=== PATIENT | female | born 2000 | race Two or more races ===

== ENCOUNTER 2024-04-26 10:07 | Emergency (ER) | payer SELFPAY ==
--- NOTE | ~2024-04-26 | US_ITS ---
EXAMINATION: US OBSTETRICAL ULTRASOUND CLINICAL INFORMATION: Severe left-sided abdominal pain. COMPARISON: None available. LMP: 04/15/2024. Gestational age by maternal dates is 1 week 4 days. Estimated date of delivery by maternal dates is 01/20/2025. TECHNIQUE: Ultrasound of the maternal pelvis is performed using transabdominal and transvaginal transducers. Transvaginal imaging is performed due to inadequate visualization transabdominally. M-mode Doppler is also performed. FINDINGS: There is a single intrauterine gestational sac with visible embryo/fetus, and cardiac activity. There is no significant subchorionic hemorrhage or hematoma. HR: 147 beats per minute. CRL (crown rump length): 7.30 cm (13 weeks 4 days +/- 4 days). YARI (estimated date of delivery): 10/28/2024 +/- 4 days. MATERNAL ADNEXA: The right maternal ovary measures 2.8 x 1.2 x 1.4 cm. The left maternal ovary measures 6.8 x 4.3 x 4.9 cm. 3 cysts are demonstrated measuring 3.8 x 3.2 x 4.5 cm and 1.9 x 2.0 x 2.8 cm and 2.0 x 2.6 x 2.5 cm. No maternal pelvic ascites. US/US pelvic ovarian doppler IMPRESSION: 1. Single intrauterine gestation with ultrasound gestational age of 13 weeks 4 days +/- 4 days. 2. Estimated date of delivery is 10/28/2024 +/- 4 days.
--- NOTE | ~2024-04-26 | US_ITS ---
EXAMINATION: US OBSTETRICAL ULTRASOUND CLINICAL INFORMATION: Severe left-sided abdominal pain. COMPARISON: None available. LMP: 04/15/2024. Gestational age by maternal dates is 1 week 4 days. Estimated date of delivery by maternal dates is 01/20/2025. TECHNIQUE: Ultrasound of the maternal pelvis is performed using transabdominal and transvaginal transducers. Transvaginal imaging is performed due to inadequate visualization transabdominally. M-mode Doppler is also performed. FINDINGS: There is a single intrauterine gestational sac with visible embryo/fetus, and cardiac activity. There is no significant subchorionic hemorrhage or hematoma. HR: 147 beats per minute. CRL (crown rump length): 7.30 cm (13 weeks 4 days +/- 4 days). YARI (estimated date of delivery): 10/28/2024 +/- 4 days. MATERNAL ADNEXA: The right maternal ovary measures 2.8 x 1.2 x 1.4 cm. The left maternal ovary measures 6.8 x 4.3 x 4.9 cm. 3 cysts are demonstrated measuring 3.8 x 3.2 x 4.5 cm and 1.9 x 2.0 x 2.8 cm and 2.0 x 2.6 x 2.5 cm. No maternal pelvic ascites. US/US OB <= 14 weeks fetus IMPRESSION: 1. Single intrauterine gestation with ultrasound gestational age of 13 weeks 4 days +/- 4 days. 2. Estimated date of delivery is 10/28/2024 +/- 4 days.
[2024-04-26 10:12] VITALS: BP 94/40; PULSE 89; RESP 19; TEMP 36.6; O2SAT 99; BMI 29.8
--- NOTE | 2024-04-26 10:55 | ED.ABDPAIN ---
HPI - Abdominal Pain General Chief Complaint: Abdominal Pain Stated Complaint: stomach pain Time Seen by Provider: 04/26/24 10:25 Source: patient, family and production support engineer Mode of arrival: ambulatory Limitations: other (very poor historian) History of Present Illness ED Provider: JASMIN MEDEROS narrative: 23 yo female with hx of cystectomy in past on L side unsure if she has her ovary reports she ws in [facility] until 13 days ago now here. She denies any other PMH notes at 4am awoke with severe L sided lower abdominal pain but denies n/v/d dysuria constipation. She denies any chance of states is it no possible at this time. States she has not had this before. Denies any other symptoms. She also c/o diffuse scaly itchy rash that she has had for months since she was told she was allergic to the water in [facility]. I asked her if she had cutaneous leshmaniasis but she states she wasn't told anything. She denies any chance of . MD elicited complaint: abdominal pain Pertinent past history: other (cystectomy) Onset (ago): hour(s) (4am today) Pain Consistency: constant Location: LLQ Severity: severe Quality: stabbing Radiation: none Migration to: no migration Exacerbating factors: movement Relieving factors: nothing Context: foreign travel Associated symptoms: denies other symptoms Related Data Allergies Allergy/AdvReac Type Severity Reaction Status Date / Time No Known Allergies Allergy Verified 04/26/24 10:14 Review of Systems Review of Systems Constitutional : No Weight loss, No Fever, No Chills ENT/Mouth : No sore throat, No Rhinorrhea Eyes: No Swelling, No Redness Cardiovascular : No Chest Pain, No SOB, No Edema Respiratory : No Cough, No Sputum, No Wheezing Gastrointestinal : no Nausea, noVomiting, no Diarrhea, positive abdominal Pain, No Hematochezia, No Melena Genitourinary : No Dysuria, No Urinary Frequency, No Hematuria, No Urgency Musculoskeletal : No joint pain, No Myalgias, No Joint Swelling Skin : No Skin Lesions, pos rash Neuro : No Weakness, No Numbness, No Dizziness, No Headache Psych : No Anxiety/Panic, No Depression All other systems reviewed and are negative. [facility] Past Medical History Attestation statement: The following information was validated with the patient. Source: old records reviewed Medical History (Updated 04/26/24 @ 14:25 by Lise Rutledge DO) Ovarian cyst Surgical History (Updated 04/26/24 @ 11:12 by Lise Rutledge DO) H/O ovarian cystectomy Social History Social History (Updated 04/26/24 @ 11:12 by Lise Rutledge DO) Patient Tobacco Use Status: Never used Tobacco Smoked in Last 30 Days: No Use of substances other than those prescribed or required for medical reasons: No Advance Directives: No Advance Directives Information Provided: Yes Physical Exam ED Vital Signs: Vital Signs - 24 hr 04/26/24 10:12 04/26/24 11:10 04/26/24 12:41 Temperature 98 F 98.2 F Pulse Rate 89 84 76 Respiratory Rate 19 18 18 Blood Pressure 94/40 L 96/39 L 91/38 L Pulse Oximetry 99 100 99 Oxygen Delivery Method Room Air Room Air Room Air 04/26/24 13:35 Temperature Pulse Rate 73 Respiratory Rate 16 Blood Pressure 98/52 L Pulse Oximetry 100 Oxygen Delivery Method Room Air BMI result Body Mass Index 29.8 Appearance: Alert. Oriented X3. in pain mild acute distress. Eyes: Pupils equal, round and reactive to light. ENT: Pharynx mildly dry MM Neck: Normal inspection. Neck supple. CVS: Normal heart rate and rhythm. Pulses normal. Respiratory: No respiratory distress. Breath sounds normal. Abdomen: Soft and mild ttp in LLQ no rebound. Skin: Skin warm and dry. pale skin color. Normal skin turgor. has areas of scaled rash and areas of old healed picked areas no signs of cellulitis see pictures below Extremities: No lower extremity edema. No calf ttp Neuro: Oriented X 3. No motor deficit. No sensory deficit. Course Course Course Narrative: patient notes she does not want to keep this she is [place] refugee and has no stable housing Reevaluation(s) Reevaluation #1: eating and drinking feeling much better, UA no UTI, no ectopic or cyst on exam, BP is going up she is feeling better Medical Decision Making Medical Decision Making MDM Narrative: 23 yo female with hx of cystectomy in past on L side here with c/o severe L sided pain at this time labs, UA, hcg, IV fentanyl/toradol for pain. US to rule out cyst/torsion. Patient is adamant she is not at this time we have asked multiple times. CT scan if negative. I also am worried about cutaneous leshmaniasis that is going on for months will ask ID could probably get fluconazole vs pamomycin at this point but she does not have PCP just came here 13 days ago Differential Diagnosis Differential Diagnoses: The differential diagnosis associated with the presentation includes ovarian cyst, torsion, constipation, renal colic Admission/Observation Consideration of admission/observation: Escalation of care including admission/observation considered Consult Healthcare Provider Management of the patient was discussed with: Javascript Front End Developer Lab Data [facility] Lab Attestation statement: I reviewed the patient's lab results. 04/26/24 11:01 04/26/24 11:01 Labs: Lab Results 04/26/24 04/26/24 Range/Units 11:01 12:53 WBC 8.0 (4.8-10.8) X10*3/uL RBC 4.57 (4.20-5.50) X10*6/uL Hgb 13.5 (12.0-16.0) g/dl Hct 39.6 (37.0-47.0) % MCV 86.7 (80.0-98.0) fL MCH 29.5 (27.0-33.0) pg MCHC 34.1 (31.0-35.0) g/dl RDW 12.8 (11.0-16.0) % Plt Count 292 (160-400) X10*3/uL MPV 9.3 L (9.4-12.3) fL Immature Gran % (Auto) 0.4 (0.0-0.4) % Neut % (Auto) 72.4 (45-73) % Lymph % (Auto) 19.3 L (20-40) % [place] % (Auto) 6.5 (2-11) % Eos % (Auto) 1.0 (0-4) % Baso % (Auto) 0.4 (0-2) % Lymph # (Auto) 1.6 (1.2-4.9) X10*3/uL [place] # (Auto) 0.5 (0.1-1.2) X10*3/uL Eos # (Auto) 0.1 (0.0-0.4) X10*3/uL Baso # (Auto) 0.0 (0.0-0.2) X10*3/uL Abs Immat Gran (auto) 0.03 (0.00-0.03) X10*3/uL Absolute Neuts (auto) 5.8 (2.0-8.3) x10*3/uL Absolute Nucleated RBC 0.000 (0.0-0.012) X10*3/uL Nucleated RBC % (auto) 0.0 (0.0-0.2) /100WBC Sodium 138 (135-145) mmol/L Potassium 3.2 L (3.3-5.1) mmol/L Chloride 109 H (96-108) mmol/L Carbon Dioxide 20 L (22-29) mmol/L Anion Gap 12 (12-20) BUN 4 L (9-16) mg/dL Creatinine 0.58 (0.5-1.4) mg/dL Estim Creat Clear Calc 140.8 Estimated GFR > 60 Random Glucose 84 (60-115) mg/dL Calcium 9.4 (8.4-10.2) mg/dL Magnesium 1.8 (1.6-2.6) mg/dL Total Bilirubin 0.3 (0.0-1.0) mg/dL Direct Bilirubin 0.1 (0.0-0.5) mg/dL AST 19 (5-31) U/L ALT 12 (0-31) U/L Alkaline Phosphatase 44 (39-117) U/L Total Protein 7.0 (6.5-8.0) g/dL Albumin 3.8 (3.5-5.0) g/dL Lipase 16 (8-78) U/L Beta HCG, Quant 22512 mIU/mL Urine Color Yellow Urine Appearance Clear Urine pH 8.0 (5.0-9.0) Ur Specific [place] <= 1.005 (1.005-1.025) Urine Protein Negative (Neg-Trace) mg/dL Urine Glucose (UA) Negative (Negative) mg/dL Urine Ketones Negative (Negative) mg/dL Urine Blood Trace H (Negative) Urine Nitrite Negative (Negative) Ur Leukocyte Esterase Negative (Negative) Urine RBC 3-5 H (0-2) /HPF Urine WBC 0-5 (0-5) /HPF Ur Squamous Epith Cells 0-2 (0-2) /HPF Urine Bacteria None Seen (None Seen) Hyaline Casts 0-2 (0-2) /LPF Independent Interpretation I performed an independent interpretation of an: Ultrasound Radiology Impression Discussion of test interpretation with radiology: I have reviewed the radiologist's reading. Independent Historian Clinical information obtained from an independent historian. History obtained from or confirmed by: Friend Medications Administered Discontinued Medications Generic Name Dose Route Start Last Admin Trade Name Delbert PRN Reason Stop Dose Admin Fentanyl 50 mcg 04/26/24 10:53 04/26/24 11:15 Fentanyl Citrate/Pf 100 Mcg/2 Ml Vial IVPUSH 04/26/24 10:54 50 mcg ONCE ONE Administration Protocol Lactated Ringer's 1,000 mls @ 999 mls/hr 04/26/24 10:53 04/26/24 12:05 Lr IV 04/26/24 11:53 Infused .Q1H1M ONE Infusion Sodium Chloride 1,000 mls @ 999 mls/hr 04/26/24 12:02 04/26/24 12:06 Ns IV 04/26/24 13:02 999 mls/hr .Q1H1M ONE Administration Ketorolac Tromethamine 15 mg 04/26/24 10:53 04/26/24 11:12 Ketorolac Tromethamine 15 Mg/Ml Vial IVPUSH 04/26/24 10:54 15 mg ONCE ONE Administration Ondansetron HCl 4 mg 04/26/24 10:53 04/26/24 11:12 Ondansetron Hcl 4 Mg/2 Ml Vial IVPUSH 04/26/24 10:54 4 mg ONCE ONE Administration Discharge Plan Discharge Clinical Impression: Abdominal pain, Patient Disposition: Home, Self-Care Instructions: Abdominal Pain (ED), Abdominal Pain in (ED) Additional Instructions: quant [id number] ultrasound shows rash is concerning for leshmaniasis will need follow up and biopsy [facility] US/US OB <= 14 weeks fetus IMPRESSION: 1. Single intrauterine gestation with ultrasound gestational age of 13 weeks 4 days +/- 4 days. 2. Estimated date of delivery is 10/28/2024 +/- 4 days AFTER YOU SEE [facility] CALL TOMORROW [phone] [facility] [address] [facility] [phone] FOLLOW UP WITH [facility] - [address] [facility] [phone] Print Language: Lao Creole
[2024-04-26 11:05] LABS: MANUAL DIFF FLAG NO
[2024-04-26 11:09] LABS: Basophils Percent Auto 0.4 % (0-2); Eosinophils Absolute Auto 0.1 X10*3/uL (0.0-0.4); Hematocrit 39.6 % (37.0-47.0); Hemoglobin 13.5 g/dl (12.0-16.0); Imm Gran Abs Auto 0.03 X10*3/uL (0.00-0.03); Imm Gran Pct Auto 0.4 % (0.0-0.4); Lymphocytes Absolute Auto 1.6 X10*3/uL (1.2-4.9); Lymphocytes Percent Auto 19.3 % (20-40); Mean Corpuscular HGB Conc 34.1 g/dl (31.0-35.0); Mean Corpuscular Hemoglobin 29.5 pg (27.0-33.0); Mean Corpuscular Volume 86.7 fL (80.0-98.0); Mean Platelet Volume 9.3 fL (9.4-12.3); Monocytes Absolute Auto 0.5 X10*3/uL (0.1-1.2); Monocytes Percent Auto 6.5 % (2-11); Neutrophils Absolute Auto 5.8 x10*3/uL (2.0-8.3); Neutrophils Percent Auto 72.4 % (45-73); Platelet Count 292 X10*3/uL (160-400); Red Blood Count 4.57 X10*6/uL (4.20-5.50); Red Cell Distribution Width 12.8 % (11.0-16.0)
[2024-04-26 11:10] VITALS: BP 96/39; PULSE 84; RESP 18; O2SAT 100
[2024-04-26] MEDS: Ketorolac Tromethamine 15 MG/ML VIAL IVPUSH (11:12)
[2024-04-26] MEDS: ondansetron HCL 4 MG/2 ML VIAL IVPUSH (11:12)
[2024-04-26] MEDS: Lactated Ringers 1,000 ML 999 ML IV (11:15)
[2024-04-26] MEDS: fentaNYL citrate/PF 100 MCG/2 ML VIAL 50 MCG IVPUSH (11:15)
[2024-04-26 11:30] LABS: Alanine Aminotransferase 12 U/L (0-31); Albumin Level 3.8 g/dL (3.5-5.0); Alkaline Phosphatase 44 U/L (39-117); Anion Gap 12 (12-20); Aspartate Amino Transferase 19 U/L (5-31); Bilirubin Direct 0.1 mg/dL (0.0-0.5); Bilirubin Total 0.3 mg/dL (0.0-1.0); Blood Urea Nitrogen 4 mg/dL (9-16); Calcium 9.4 mg/dL (8.4-10.2); Carbon Dioxide 20 mmol/L (22-29); Chloride 109 mmol/L (96-108); Creatinine Clr Calc Pharmacy 140.8; Estimated Glomerular Filt Rate > 60; Glucose Random 84 mg/dL (60-115); Lipase 16 U/L (8-78); Magnesium 1.8 mg/dL (1.6-2.6); Potassium 3.2 mmol/L (3.3-5.1); Sodium 138 mmol/L (135-145)
--- NOTE | 2024-04-26 11:38 | PC.NURSE ---
Assumed care of this patient at 1100, patient primarily Hatian Creole speaking, before this RN was on shift provider and previous RN spoke to patient via virtual roll icer machine, per previous RN Aleksandra and Dr. Rutledge patient was insistent that there was no possibility of . Patient medicated for pain per MAR on her way to US. US called provider notifying provider patient is .
[2024-04-26] MEDS: 0.9 % Sodium Chloride 1,000 ML 999 ML IV ×2 (12:06→14:29)
--- NOTE | 2024-04-26 12:13 | PC.NURSE ---
Chantal Parnell communications administrator services utilized at this time - Dr. Rutledge bedside discussing w/ pt about the US results displaying that pt is 13 weeks . Pt verbalizing that she was unaware that she was . Pt telling this RN as well as MD that she is unable to care for the baby at this time d/t living situation. Pt educated that [facility] readily available to her in whatever she decides to do.
[2024-04-26 12:41] VITALS: BP 91/38; PULSE 76; RESP 18; TEMP 36.8; O2SAT 99
[2024-04-26 13:02] LABS: Appearance Urine Clear; Color Urine Yellow; Glucose Urine UA Negative (Negative); Leukocyte Esterase Urine Negative (Negative); Nitrite Urine Negative (Negative); Specific Gravity - Urine <= 1.005 (1.005-1.025); UMIC TRIGGER UACC YES; Urine Blood Trace (Negative); Urine Ketones Negative (Negative); Urine Protein Negative (Neg-Trace)
[2024-04-26 13:07] LABS: Bacteria Urine None Seen (None Seen); Hyaline Casts Urine 0-2 /LPF (0-2); Squamous Epithelial Cell Urine 0-2 /HPF (0-2); WBC Urine 0-5 /HPF (0-5)
[2024-04-26 13:35] VITALS: BP 98/52; PULSE 73; RESP 16; O2SAT 100
--- NOTE | 2024-04-26 14:21 | PC.NURSE ---
Spoke to patient via help desk representative, patient has not eaten more than one plaintain since last night, offered and given food. Patient denies pain, NS continuing to run. BP mildly improved.
[2024-04-26 14:33] VITALS: BP 98/47; PULSE 83; RESP 16; O2SAT 100
[2024-04-26 15:31] VITALS: BP 98/53; PULSE 89; RESP 16; TEMP 36.8; O2SAT 100
[2024-04-27 07:53] LABS: HIV AB/AG Nonreactive (Nonreactive)
== END 2024-04-26 15:32 | disposition home or self-care (01) ==
PROVIDERS: Emergency Provider Emergency Medicine
DX: O26.91 Pregnancy related conditions, unspecified, first trimester (principal); R10.2 Pelvic and perineal pain; R21 Rash and other nonspecific skin eruption; Z3A.13 13 weeks gestation of pregnancy; Z79.899 Other long term (current) drug therapy
CPT/HCPCS: 36415; 76801; 80048; 80076; 81001; 81003; 83690; 83735; 84702; 85025; 87389; 93975; 96361; 96374; 96375; 99285; J1885; J2405; J3010; J7120

== ENCOUNTER 2024-06-26 15:10 | Emergency (ER) | payer MEDICAID, SELFPAY ==
--- NOTE | ~2024-06-26 | US_ITS ---
EXAMINATION: US , LIMITED CLINICAL INFORMATION: Lower abdominal pain with check for viability COMPARISON: ultrasound 04/26/2024 TECHNIQUE: Transabdominal ultrasound was performed. This was an extremely limited exam to assess viability. FINDINGS: Single fetus is present in breech presentation and was active during the course of the exam with the heart rate of 155 bpm. The only measurement performed was a femur length which was 3.98 cm is corresponding to gestational age of 22 weeks 6 days. US/US OB limited IMPRESSION: Limited study with active fetus with normal heart rate. Electronically signed by: Desean Chapman MD 06/26/2024 05:59 PM EDT
--- NOTE | 2024-06-26 15:28 | ED_ITS ---
HPI - Abdominal Pain General Chief Complaint: General Medical Stated Complaint: abd pain Related Data Allergies Allergy/AdvReac Type Severity Reaction Status Date / Time No Known Allergies Allergy Verified 06/26/24 15:37 [facility] Past Medical History Medical History (Updated 06/26/24 @ 19:36 by SOLA Lynn) Ovarian cyst Surgical History (Updated 04/26/24 @ 11:12 by Lise Rutledge DO) H/O ovarian cystectomy Social History Social History (Updated 04/26/24 @ 11:12 by Lise Rutledge DO) Patient Tobacco Use Status: Never used Tobacco Do you have a plan to hurt others: No Plan Physical Exam ED Vital Signs: Vital Signs - 24 hr 06/26/24 15:33 Temperature 98 F Pulse Rate 89 Respiratory Rate 19 Blood Pressure 96/48 L Pulse Oximetry 98 BMI result Body Mass Index 30.6 Course Course Course Narrative: This is a Rapid Medical Examination (RME) performed by Miya Jernigan PA-C in triage. Full HPI, ROS, assessment and treatment plan per primary provider in the Main ED. 23 yo Hatian Creole speaking female who is currently presents to the ER for evaluation of intermittent lower abdominal pains for the last 1 week. no discharge, bleeding, leaking of fluid. has not had any medical care for her . seen here on 04/26 and found out she was 13w4d . in triage patient is awake, alert, no distress. normal inspection of the chest. gravid uterus to above the level of the umbilicus. nontender abdomen. no peripheral edema. Plan: labs, U/S Reevaluation(s) Reevaluation #1: patient eloped prior to completing treatment. Medical Decision Making Lab Data 06/26/24 16:10 06/26/24 16:10 Labs: Lab Results 06/26/24 Range/Units 16:10 WBC 8.5 (4.8-10.8) X10*3/uL RBC 3.94 L (4.20-5.50) X10*6/uL Hgb 11.8 L (12.0-16.0) g/dl Hct 34.0 L (37.0-47.0) % MCV 86.3 (80.0-98.0) fL MCH 29.9 (27.0-33.0) pg MCHC 34.7 (31.0-35.0) g/dl RDW 13.2 (11.0-16.0) % Plt Count 325 (160-400) X10*3/uL MPV 9.4 (9.4-12.3) fL Immature Gran % (Auto) 0.9 H (0.0-0.4) % Neut % (Auto) 60.7 (45-73) % Lymph % (Auto) 26.1 (20-40) % [place] % (Auto) 8.6 (2-11) % Eos % (Auto) 3.2 (0-4) % Baso % (Auto) 0.5 (0-2) % Lymph # (Auto) 2.2 (1.2-4.9) X10*3/uL [place] # (Auto) 0.7 (0.1-1.2) X10*3/uL Eos # (Auto) 0.3 (0.0-0.4) X10*3/uL Baso # (Auto) 0.0 (0.0-0.2) X10*3/uL Abs Immat Gran (auto) 0.08 H (0.00-0.03) X10*3/uL Absolute Neuts (auto) 5.1 (2.0-8.3) x10*3/uL Absolute Nucleated RBC 0.000 (0.0-0.012) X10*3/uL Nucleated RBC % (auto) 0.0 (0.0-0.2) /100WBC Sodium 136 (135-145) mmol/L Potassium 3.5 (3.3-5.1) mmol/L Chloride 108 (96-108) mmol/L Carbon Dioxide 20 L (22-29) mmol/L Anion Gap 12 (12-20) BUN 5 L (9-16) mg/dL Creatinine 0.57 (0.5-1.4) mg/dL Estim Creat Clear Calc 145.2 Estimated GFR > 60 Random Glucose 107 (60-115) mg/dL Calcium 8.9 (8.4-10.2) mg/dL Magnesium 1.9 (1.6-2.6) mg/dL Total Bilirubin 0.2 (0.0-1.0) mg/dL Direct Bilirubin < 0.2 (0.0-0.5) mg/dL AST 15 (5-31) U/L ALT 8 (0-31) U/L Alkaline Phosphatase 51 (39-117) U/L Total Protein 6.8 (6.5-8.0) g/dL Albumin 3.5 (3.5-5.0) g/dL Lipase 23 (8-78) U/L Beta HCG, Quant 37549 mIU/mL Urine Color Yellow Urine Appearance Clear Urine pH 6.5 (5.0-9.0) Ur Specific [place] <= 1.005 (1.005-1.025) Urine Protein Negative (Neg-Trace) mg/dL Urine Glucose (UA) Negative (Negative) mg/dL Urine Ketones Negative (Negative) mg/dL Urine Blood Small (1+) H (Negative) Urine Nitrite Negative (Negative) Ur Leukocyte Esterase Negative (Negative) Urine RBC 6-10 H (0-2) /HPF Urine WBC 0-5 (0-5) /HPF Ur Squamous Epith Cells 0-2 (0-2) /HPF Urine Bacteria None Seen (None Seen) Hyaline Casts 0-2 (0-2) /LPF Discharge Plan Discharge Clinical Impression: Abdominal pain Patient Disposition: Left W/O Completing Treatment Print Language: Brazilian Creole
[2024-06-26 15:33] VITALS: BP 96/48; PULSE 89; RESP 19; TEMP 36.6; O2SAT 98; BMI 30.6
[2024-06-26 16:19] LABS: MANUAL DIFF FLAG NO
[2024-06-26 16:22] LABS: Appearance Urine Clear; Color Urine Yellow; Glucose Urine UA Negative (Negative); Leukocyte Esterase Urine Negative (Negative); Nitrite Urine Negative (Negative); PH 6.5 (5.0-9.0); Specific Gravity - Urine <= 1.005 (1.005-1.025); UMIC TRIGGER UACC YES; Urine Blood Small (1+) (Negative); Urine Ketones Negative (Negative); Urine Protein Negative (Neg-Trace)
[2024-06-26 16:26] LABS: Bacteria Urine None Seen (None Seen); Hyaline Casts Urine 0-2 /LPF (0-2); Squamous Epithelial Cell Urine 0-2 /HPF (0-2); WBC Urine 0-5 /HPF (0-5)
[2024-06-26 16:30] LABS: Basophils Percent Auto 0.5 % (0-2); Eosinophils Absolute Auto 0.3 X10*3/uL (0.0-0.4); Eosinophils Percent Auto 3.2 % (0-4); Hemoglobin 11.8 g/dl (12.0-16.0); Imm Gran Abs Auto 0.08 X10*3/uL (0.00-0.03); Imm Gran Pct Auto 0.9 % (0.0-0.4); Lymphocytes Absolute Auto 2.2 X10*3/uL (1.2-4.9); Lymphocytes Percent Auto 26.1 % (20-40); Mean Corpuscular HGB Conc 34.7 g/dl (31.0-35.0); Mean Corpuscular Hemoglobin 29.9 pg (27.0-33.0); Mean Corpuscular Volume 86.3 fL (80.0-98.0); Mean Platelet Volume 9.4 fL (9.4-12.3); Monocytes Absolute Auto 0.7 X10*3/uL (0.1-1.2); Monocytes Percent Auto 8.6 % (2-11); Neutrophils Absolute Auto 5.1 x10*3/uL (2.0-8.3); Neutrophils Percent Auto 60.7 % (45-73); Platelet Count 325 X10*3/uL (160-400); Red Blood Count 3.94 X10*6/uL (4.20-5.50); Red Cell Distribution Width 13.2 % (11.0-16.0); White Blood Count 8.5 X10*3/uL (4.8-10.8)
[2024-06-26 16:37] LABS: Alanine Aminotransferase 8 U/L (0-31); Albumin Level 3.5 g/dL (3.5-5.0); Alkaline Phosphatase 51 U/L (39-117); Anion Gap 12 (12-20); Aspartate Amino Transferase 15 U/L (5-31); Bilirubin Direct < 0.2 mg/dL (0.0-0.5); Bilirubin Total 0.2 mg/dL (0.0-1.0); Blood Urea Nitrogen 5 mg/dL (9-16); Calcium 8.9 mg/dL (8.4-10.2); Carbon Dioxide 20 mmol/L (22-29); Chloride 108 mmol/L (96-108); Creatinine Clr Calc Pharmacy 145.2; Estimated Glomerular Filt Rate > 60; Glucose Random 107 mg/dL (60-115); Lipase 23 U/L (8-78); Magnesium 1.9 mg/dL (1.6-2.6); Potassium 3.5 mmol/L (3.3-5.1); Sodium 136 mmol/L (135-145); Total Protein 6.8 g/dL (6.5-8.0)
[2024-06-26 17:33] LABS: HCG Quantitative 29318 mIU/mL
== END 2024-06-26 19:50 | disposition left against medical advice (07) ==
PROVIDERS: Physician Assistant; Emergency Provider Emergency Medicine
DX: O26.891 Other specified pregnancy related conditions, first trimester (principal); R10.9 Unspecified abdominal pain; Z3A.13 13 weeks gestation of pregnancy
CPT/HCPCS: 36415; 76815; 80048; 80076; 81001; 83690; 83735; 84702; 85025; 99282; 99284

== ENCOUNTER 2024-07-31 11:20 | Emergency (ER) | payer OTHER, MEDICAID, SELFPAY ==
--- NOTE | ~2024-07-31 | US_ITS ---
EXAMINATION: OBSTETRIC ULTRASOUND - SECOND TRIMESTER CLINICAL INFORMATION: Abdominal pain. COMPARISON: Ultrasound dated 06/26/2024. TECHNIQUE: Transabdominal imaging of the uterus was performed utilizing jones scale and color doppler technique, with m-mode imaging. FINDINGS: Single live intrauterine fetus in the cephalic position with cardiac activity detected at 136 bpm. movement is present . Posterior placenta. No perigestational hemorrhage. Cervix measures 5 cm and is closed. Evaluation was not targeted for assessment of the anatomy. Biometric measurements as follows: Biparietal diameter: 7.08 cm corresponding to gestational age of 28 weeks and 4 days. Head circumference: 26.48 cm corresponding to gestational age of 28 weeks and 6 days. Abdominal circumference: 21.66 cm corresponding to a gestational age of 26 weeks and 1 day. Femur length: 5.07 cm corresponding to gestational age of 27 weeks and 2 days. Estimated weight 998 g. US/US OB limited IMPRESSION: * Single live intrauterine fetus with estimated gestational age by ultrasound of 27 weeks and 5 days. * Estimated weight 998 g (24 percentile). Electronically signed by: Sola Campbell MD 07/31/2024 04:01 PM [facility]
[2024-07-31 12:05] VITALS: BP 107/61; PULSE 88; RESP 16; TEMP 36.3; O2SAT 99; BMI 29.9
--- NOTE | 2024-07-31 12:08 | ED_ITS ---
HPI - General Adult General Chief complaint: General Medical Stated complaint: not feeling good Source: patient and ship's engineer (All interactions with this patient were [place] with [place] [facility] [place] [employer] ship's engineer[place] Mode of arrival: ambulatory Limitations: language barrier (All interactions with this patient were facilitated with an [facility] [place] [employer] at [employer]ole ship's engineer) History of Present Illness ED Provider: Katharine Lynch PA-C HPI narrative: Patient is a 23 year old assigned female at with a history of current presenting to the emergency department today with lower abdominal pain. Patient states that she has an uncomfortable in her abdomen and is worried about her . Patient denies any dizziness, lightheadedness, nausea, vomiting, fever, chills, blurry vision, double vision, loss of vision, chest pain, difficulty breathing, shortness of breath, back pain, night sweats, pain with urination, increased urinary frequency, increased urinary urgency, blood in her urine or stool, syncope or a near syncopal episode, recent trauma or falls, bowel incontinence, bladder incontinence, or any other complaints at this time. Relieving factors: none Exacerbating factors: none Associated symptoms: denies other symptoms Treatments prior to arrival: none Related Data Allergies Allergy/AdvReac Type Severity Reaction Status Date / Time No Known Allergies Allergy Verified 07/31/24 12:15 Review of Systems 2 Constitutional: Constitutional: Reports no additional constitutional complaints, Denies chills, Denies fever(s) and Denies night sweats Eyes: Eyes: Reports no additional eye complaints, Denies blurry vision, Denies change in vision, Denies diplopia, Denies eye discharge, Denies loss of vision and Denies eye pain ENT: Denies dizziness Cardiovascular: Cardiovascular: Reports no additional cardiovascular complaints, Denies chest pain, Denies lightheadedness, Denies Loss of Consciousness and Denies dyspnea Respiratory: Respiratory: Reports no additional respiratory complaints and Denies dyspnea Gastrointestinal: Gastrointestinal: Reports no additional gastrointestinal complaints, Reports abdominal pain, Denies melena, Denies hematochezia, Denies change in bowel habits and Denies change in stool character Genitourinary: Genitourinary: Denies hematuria, Denies urinary frequency, Denies dysuria, Denies urinary incontinence, Denies urinary hesitancy and Denies urinary urgency Musculoskeletal: Musculoskeletal: Reports no additional musculoskeletal complaints, Denies numbness and Denies tingling Neurologic: Denies dizziness, Denies loss of vision, Denies numbness and Denies tingling Psychiatric: Psychiatric: Reports no additional psychiatric complaints Endocrine: Endocrine: Reports no additional endocrine complaints Hematologic/Lymphatic: Hematologic/Lymphatic: Reports no additional hematologic/lymphatic complaints Allergic/Immunologic: Allergic/Immunologic: Reports no additional allergic/immunologic complaints PMFSH Past Medical History Attestation statement: The following information was validated with the patient. Source: old records reviewed and nursing notes reviewed Medical History Ovarian cyst Surgical History H/O ovarian cystectomy Social History Social History Patient Tobacco Use Status: Never used Tobacco Advance Directives: No Advance Directives Information Provided: Yes Do you have a plan to hurt others: No Plan Physical Exam ED Vital Signs: BMI result Body Mass Index 29.9 Const General: cooperative, no acute distress, alert and awake Nutritional Appearance: well nourished Orientation/consciousness: patient oriented x3 Limitations: no limitations HENMT Head: Yes normal to inspection and Yes atraumatic Ears: hearing grossly normal bilaterally and external ears normal General nose exam: Normal external nose present, no nasal discharge noted and no epistaxis Face and sinus: Yes normal facial exam, No abrasion and No laceration Mouth: Normal oral and palatal mucosa present, no drooling and no muffled voice Eyes General: appearance normal, both eyes and all related structures Periorbital: periorbital findings normal Eyelids: Yes eyelids normal Conjunctivae: conjunctivae normal Pupils: Equal, round and reactive pupils present EOM: EOMs intact bilaterally Neck Neck: Yes normal visual inspection, Yes full ROM and Yes no lymphadenopathy Chest Chest palpation & inspection: normal inspection of the chest Resp Effort & Inspection: normal respiratory effort and able to speak in complete sentences GI Inspection: Yes normal to inspection Palpation (GI): Soft to palpation, not firm, nontender and no guarding Neuro General: patient oriented x3 and moves all extremities Cranial nerves: Yes Equal, round and reactive pupils present Cognition (Neuro): normal cognition Extrem General: Yes normal to inspection, Yes full ROM and Yes capillary refill normal Psych Appearance: grossly normal Mental Status: mental status grossly normal Affect: normal affect Attitude: cooperative Thought process: Normal thought process present Thought content: Normal thought content present Insight: Good insight present (Psych) Course Course Course Narrative: RME performed by Katharine Lynch PA-C. Patient is a 23 year old assigned female at presenting to the emergency department with lower abdominal pain and . Patient states that she is but does not know how far along she is. Patient states that her lower abdomen hurts. Detailed physical exam and review of systems are deferred to the milling general superintendent. Labs and imaging ordered. Patient placed back in the waiting room pending room availability and results. Medical Decision Making Medical Decision Making MDM Narrative: Patient is 23 year old assigned female at with a history of current presenting to the emergency department today with abdominal pain. Patient's limited physical exam performed in triage was unremarkable. Patient's blood work was unremarkable. Patient's US showed an intrauterine fetus at 27 weeks and 5 days. Patient left the department without completing treatment. Patient left the department before myself or any of the other emergency department clinicians could explain to or review with the patient; physical exam findings, test results, need or lack there of for additional testing, need or lack there of for a procedure to be performed, need or lack there of for hospital admission / transfer, need or lack there of for prescription medication, treatment options, or a treatment plan. Differential Diagnosis Differential Diagnoses: The differential diagnosis associated with the presentation includes Admission/Observation Consideration of admission/observation: Escalation of care including admission/observation considered Patient would have been admitted to the hospital had she completed her work up and it had any findings where hospital admission was appropriate, her clinical presentation warranted hospital admission, had myself or any other emergency jewelry department supervisor had the ability to discuss need or lack there of for hospital admission, and the patient hadn't left the department without completing treatment. Lab Data [facility] Lab Attestation statement: I reviewed the patient's lab results. My interpretation of these results are in the MDM Rationale portion of this note. 07/31/24 12:23 07/31/24 12:23 Labs: Lab Results 07/31/24 Range/Units 12:23 WBC 9.5 (4.8-10.8) X10*3/uL RBC 3.97 L (4.20-5.50) X10*6/uL Hgb 11.8 L (12.0-16.0) g/dl Hct 34.2 L (37.0-47.0) % MCV 86.1 (80.0-98.0) fL MCH 29.7 (27.0-33.0) pg MCHC 34.5 (31.0-35.0) g/dl RDW 13.2 (11.0-16.0) % Plt Count 324 (160-400) X10*3/uL MPV 9.1 L (9.4-12.3) fL Immature Gran % (Auto) 1.3 H (0.0-0.4) % Neut % (Auto) 62.9 (45-73) % Lymph % (Auto) 23.3 (20-40) % [place] % (Auto) 10.7 (2-11) % Eos % (Auto) 1.4 (0-4) % Baso % (Auto) 0.4 (0-2) % Lymph # (Auto) 2.2 (1.2-4.9) X10*3/uL [place] # (Auto) 1.0 (0.1-1.2) X10*3/uL Eos # (Auto) 0.1 (0.0-0.4) X10*3/uL Baso # (Auto) 0.0 (0.0-0.2) X10*3/uL Abs Immat Gran (auto) 0.12 H (0.00-0.03) X10*3/uL Absolute Neuts (auto) 6.0 (2.0-8.3) x10*3/uL Absolute Nucleated RBC 0.000 (0.0-0.012) X10*3/uL Nucleated RBC % (auto) 0.0 (0.0-0.2) /100WBC Sodium 135 (135-145) mmol/L Potassium 3.7 (3.3-5.1) mmol/L Chloride 109 H (96-108) mmol/L Carbon Dioxide 17 L (22-29) mmol/L Anion Gap 13 (12-20) BUN 5 L (9-16) mg/dL Creatinine 0.55 (0.5-1.4) mg/dL Estim Creat Clear Calc 160.2 Estimated GFR > 60 Random Glucose 83 (60-115) mg/dL Calcium 9.0 (8.4-10.2) mg/dL Magnesium 1.8 (1.6-2.6) mg/dL Total Bilirubin 0.2 (0.0-1.0) mg/dL AST 19 (5-31) U/L ALT 7 (0-31) U/L Alkaline Phosphatase 65 (39-117) U/L Total Protein 6.7 (6.5-8.0) g/dL Albumin 3.4 L (3.5-5.0) g/dL Beta HCG, Quant 51437 mIU/mL Influenza Type A (PCR) NEGATIVE (Negative) Influenza Type B (PCR) NEGATIVE (Negative) RSV RNA Qual (PCR) NEGATIVE (Negative) SARS-CoV-2 RNA (RT-PCR) NEGATIVE (Negative) Independent Interpretation I performed an independent interpretation of an: Ultrasound Interpretation: My interpretation is in agreement with the radiologist's impression of this imaging study. L EXAMINATION: OBSTETRIC ULTRASOUND - SECOND TRIMESTER CLINICAL INFORMATION: Abdominal pain. COMPARISON: Ultrasound dated 06/26/2024. TECHNIQUE: Transabdominal imaging of the uterus was performed utilizing jones scale and color doppler technique, with m-mode imaging. FINDINGS: Single live intrauterine fetus in the cephalic position with cardiac activity detected at 136 bpm. movement is present. Posterior placenta. No perigestational hemorrhage. Cervix measures 5 cm and is closed. Evaluation was not targeted for assessment of the anatomy. Biometric measurements as follows: Biparietal diameter: 7.08 cm corresponding to gestational age of 28 weeks and 4 days. Head circumference: 26.48 cm corresponding to gestational age of 28 weeks and 6 days. Abdominal circumference: 21.66 cm corresponding to a gestational age of 26 weeks and 1 day. Femur length: 5.07 cm corresponding to gestational age of 27 weeks and 2 days. Estimated weight 998 g. US/US OB limited IMPRESSION: * Single live intrauterine fetus with estimated gestational age by ultrasound of 27 weeks and 5 days. * Estimated weight 998 g (24 percentile). Electronically signed by: Sola Campbell MD 07/31/2024 04:01 [place] [facility] [place]ict[place] By: Sola Campbell Signed By: Electronically signed by Sola Campbell 07/31/24 1604 Radiology Impression Discussion of test interpretation with radiology: I have reviewed the radiologist's reading. Discharge Plan Discharge Clinical Impression: , Abdominal pain Patient Disposition: Left W/O Completing Treatment Discharge Date/Time: 07/31/24 20:23
[2024-07-31 12:28] LABS: MANUAL DIFF FLAG NO
[2024-07-31 12:29] LABS: Basophils Percent Auto 0.4 % (0-2); Eosinophils Absolute Auto 0.1 X10*3/uL (0.0-0.4); Eosinophils Percent Auto 1.4 % (0-4); Hematocrit 34.2 % (37.0-47.0); Hemoglobin 11.8 g/dl (12.0-16.0); Imm Gran Abs Auto 0.12 X10*3/uL (0.00-0.03); Imm Gran Pct Auto 1.3 % (0.0-0.4); Lymphocytes Absolute Auto 2.2 X10*3/uL (1.2-4.9); Lymphocytes Percent Auto 23.3 % (20-40); Mean Corpuscular HGB Conc 34.5 g/dl (31.0-35.0); Mean Corpuscular Hemoglobin 29.7 pg (27.0-33.0); Mean Corpuscular Volume 86.1 fL (80.0-98.0); Mean Platelet Volume 9.1 fL (9.4-12.3); Monocytes Percent Auto 10.7 % (2-11); Neutrophils Percent Auto 62.9 % (45-73); Platelet Count 324 X10*3/uL (160-400); Red Blood Count 3.97 X10*6/uL (4.20-5.50); Red Cell Distribution Width 13.2 % (11.0-16.0); White Blood Count 9.5 X10*3/uL (4.8-10.8)
[2024-07-31 13:06] LABS: Influenza A PCR NEGATIVE (Negative); Influenza B PCR NEGATIVE (Negative); Resp Syncy Virus RNA Qual PCR NEGATIVE (Negative); SARS COV2 PCR INHOUSE NEGATIVE (Negative)
[2024-07-31 14:32] LABS: Alanine Aminotransferase 7 U/L (0-31); Albumin Level 3.4 g/dL (3.5-5.0); Alkaline Phosphatase 65 U/L (39-117); Anion Gap 13 (12-20); Aspartate Amino Transferase 19 U/L (5-31); Bilirubin Total 0.2 mg/dL (0.0-1.0); Blood Urea Nitrogen 5 mg/dL (9-16); Carbon Dioxide 17 mmol/L (22-29); Chloride 109 mmol/L (96-108); Creatinine Clr Calc Pharmacy 160.2; Estimated Glomerular Filt Rate > 60; Glucose Random 83 mg/dL (60-115); Magnesium 1.8 mg/dL (1.6-2.6); Potassium 3.7 mmol/L (3.3-5.1); Sodium 135 mmol/L (135-145); Total Protein 6.7 g/dL (6.5-8.0)
[2024-07-31 14:51] LABS: HCG Quantitative 31432 mIU/mL
--- NOTE | 2024-07-31 20:23 | PC.NURSE ---
Pt no answer when called for reassessment.
== END 2024-07-31 20:23 | disposition left against medical advice (07) ==
PROVIDERS: Physician Assistant Medical; Emergency Provider Emergency Medicine
DX: O26.92 Pregnancy related conditions, unspecified, second trimester (principal); R10.2 Pelvic and perineal pain; Z3A.27 27 weeks gestation of pregnancy; Z03.818 Encounter for observation for suspected exposure to other biological agents ruled out; Z79.899 Other long term (current) drug therapy
CPT/HCPCS: 0241U; 76815; 80053; 83735; 84702; 85025; 99281; 99284

== ENCOUNTER 2024-09-09 10:59 | Emergency (ER) | payer MEDICAID, SELFPAY ==
--- NOTE | ~2024-09-09 | US_ITS ---
EXAMINATION: US , LIMITED CLINICAL INFORMATION: Abdominal pain. 32 weeks . Evaluate fetus. COMPARISON: Ultrasound OB 07/31/2024. TECHNIQUE: Transabdominal imaging of pelvis is performed. FINDINGS: There is a single live intrauterine fetus in cephalic position. heart rate is 1 36 bpm. The cervix is closed measuring 4.40 cm. The placenta is posterior. Single femoral length measured is 6.14 cm corresponding to 32 weeks 4 days +/- 3 weeks. Both ovaries are not visualized. No free fluid in the cul-de-sac. US/US OB limited IMPRESSION: Single live intrauterine fetus in cephalic position measuring 32 weeks and 5 days.. Electronically signed by: Reuben Parson MD 09/09/2024 12:50 PM EST
[2024-09-09 11:08] VITALS: BP 109/60; PULSE 108; RESP 18; TEMP 37; O2SAT 97; BMI 32.7
--- NOTE | 2024-09-09 11:08 | ED_ITS ---
HPI - General Chief complaint: OB Stated complaint: 7 not feeling movement not feeling well Time Seen by Provider: 09/09/24 12:46 Source: patient Mode of arrival: ambulatory Limitations: language barrier (Patient speaks Gabonese Creole, iPad Creole sign language interpreter used) History of Present Illness ED Provider: Dr. German Downing HPI Narrative: 23-year-old female who speaks Gabonese Creole only, LMP 01/19/2023 (33 weeks and 2 days by dates) EDC 01/20/2024 who has not had any care who presents emergency department for evaluation of abdominal pain patient states that she has been having abdominal pain for the last 3 days. She states that the pain is worse several minutes after eating. She was not certain how long the pain lasts. She states she was having heartburn symptoms as well as her abdominal pain but he was not taken any medications. Patient states the pain feels different than her contraction pains from her previous pregnancies (her younger child is 8 years old). She also complains of a 2nd type of abdominal pain which is precipitated by movement of her baby. She denies any vaginal bleeding or vaginal discharge. She does have urinary frequency, dysuria and vaginal pruritus. She states she was had rhinorrhea for the last 3 days with no fever, chills or cough. She denied chest pain or shortness of breath. She denied headache. She was not noticed any swelling in her lower extremities. Patient states that she moved from [facility] to [place] on 04/15/2024. She had her previous delivery he was in [facility]. She states that there were no complications during pregnancies and she had normal vaginal deliveries. Related Data Allergies Allergy/AdvReac Type Severity Reaction Status Date / Time No Known Allergies Allergy Verified 09/09/24 11:14 [facility] Past Medical History [facility] Narrative: Social history: Patient moves from [facility] to [facility] on 04/15/2024. She denies tobacco, alcohol and drug use. Medical History Ovarian cyst Surgical History H/O ovarian cystectomy Social History Social History Patient Tobacco Use Status: Never used Tobacco Smoked in Last 30 Days: No Use of substances other than those prescribed or required for medical reasons: No Advance Directives: No Advance Directives Information Provided: No Do you have a plan to hurt others: No Plan Patient : Yes Physical Exam 2 Vital Signs: Vital Signs: Last Vital Signs Temp 98.3 F 09/09/24 13:42 Pulse 90 09/09/24 13:42 Resp 18 09/09/24 13:42 BP 92/53 L 09/09/24 13:42 Pulse Ox 100 09/09/24 13:42 O2 Del Method Room Air 09/09/24 13:42 BMI result Body Mass Index 32.7 Vital signs were normal Exam: General: Awake, alert in no distress Head: Normocephalic, atraumatic EENT: PERRL, Lids normal, sclera normal, conjunctiva normal, nose normal , ears normal, throat without erythema or exudates Neck: Supple, no adenopathy Lung: breath sounds symmetric, no wheezing, rales or rhonchi Chest: symmetric movement, nontender Heart: regular rate and rhythm, normal S1, S2 no murmurs or rubs Abdomen: Gravid uterus, mild to moderate epigastric pain, mild pain with palpation of the left lower uterus, normal bowel sounds, no involuntary guarding Back: no vertebral tenderness, no CVAT Extremities: no deformities, moves all extremities symmetrically Neuro: Awake, alert, oriented, normal speech, moves all extremities symmetrically Psych: Pleasant, cooperative Course Course Course Narrative: This is a Rapid Medical Exam performed in triage by Batsheva Pedroza PA-C. Full HPI, ROS and PE to be performed by primary ED provider. 23yo F Gabonese Creole Speaking @32 weeks gestation presenting to the ED c/o lower abdominal pain when fetus is moving, vaginal itching, & would like to know the gender of the baby . Has NOT had any care, discussed at length in triage importance of obtaining an OBGYN. denies vaginal d/c or bleeding, N/V PE: garvid uterus, abdomen soft, nontoxic appearing. Plan: labs, UA, US Medical Decision Making Medical Decision Making MDM Narrative: 23-year-old female who speaks Gabonese Creole only, LMP 01/19/2023 (33 weeks and 2 days by dates) EDC 01/20/2024 who has not had any care who presents emergency department for evaluation of abdominal pain patient states that she has been having abdominal pain for the last 3 days. Patient does have heartburn like epigastric pain which is worse immediately after eating . She also complains of pain in her abdomen which is worse with movement. Patient states that her pains feel different than her contraction pains that she had with her previous pregnancies. Patient was also had urinary frequency, dysuria and vaginal pruritus. She has had no vaginal discharge or vaginal bleeding. She did complain of rhinorrhea over the last 3 days but denied fever, chills or cough. She denied headache or lower extremity swelling. Vital signs were normal. Physical examination did reveal epigastric tenderness and left lower quadrant tenderness Differential diagnosis: ?Includes but is not limited to labor, preeclampsia, gastritis, GERD, anemia, electrolyte abnormalities Following evaluation was ordered: CBC, BNP, liver panel, magnesium, quantitative beta-hCG, urinalysis, ultrasound OB-limited Course: 15:29 My interpretation patient's laboratory evaluation as follows: CBC revealed a normocytic anemia with an H&H of 11 and 32.8. Platelet count was normal 310. Patient's comprehensive metabolic panel revealed low chloride of 100. Low bicarb 18. LFTs were normal. Quantitative beta-hCG was 33,120 . Urinalysis was positive for blood and leukocyte esterase. Microscopic revealed 6-10 RBCs, 0-5 WBCs, 11-20 squamous cells, trace-non clean catch specimen. At this time I suspect that the patient was epigastric pain is consistent with GERD. However the patient was also having lower abdominal pain which could be traction/ labor. At this time I do not think that the patient has any evidence for preeclampsia as the cause of her pain. The patient was not gotten any care. I did discuss the patient's presentation covering OBGYN physician at [facility], Dr. Hatfield who accepted the patient as an ED transfer to the [facility] triage area. The patient will be kept NPO. The patient was aware of the need for transfer and is aware that she will be evaluated [facility] and that the physicians at [facility] will determine the disposition Admission/Observation Consideration of admission/observation: Escalation of care including admission/observation considered (Yes) Lab Data MDM Lab Attestation statement: I reviewed the patient's lab results. 12/21/24 11:51 09/09/24 11:51 Labs: Lab Results 09/09/24 Range/Units 11:51 WBC 10.1 (4.8-10.8) X10*3/uL RBC 3.80 L (4.20-5.50) X10*6/uL Hgb 11.0 L (12.0-16.0) g/dl Hct 32.8 L (37.0-47.0) % MCV 86.3 (80.0-98.0) fL MCH 28.9 (27.0-33.0) pg MCHC 33.5 (31.0-35.0) g/dl RDW 13.1 (11.0-16.0) % Plt Count 310 (160-400) X10*3/uL MPV 9.0 L (9.4-12.3) fL Immature Gran % (Auto) 1.5 H (0.0-0.4) % Neut % (Auto) 67.8 (45-73) % Lymph % (Auto) 18.7 L (20-40) % [place] % (Auto) 10.6 (2-11) % Eos % (Auto) 1.1 (0-4) % Baso % (Auto) 0.3 (0-2) % Lymph # (Auto) 1.9 (1.2-4.9) X10*3/uL [place] # (Auto) 1.1 (0.1-1.2) X10*3/uL Eos # (Auto) 0.1 (0.0-0.4) X10*3/uL Baso # (Auto) 0.0 (0.0-0.2) X10*3/uL Abs Immat Gran (auto) 0.15 H (0.00-0.03) X10*3/uL Absolute Neuts (auto) 6.8 (2.0-8.3) x10*3/uL Absolute Nucleated RBC 0.000 (0.0-0.012) X10*3/uL Nucleated RBC % (auto) 0.0 (0.0-0.2) /100WBC Sodium 135 (135-145) mmol/L Potassium 4.0 (3.3-5.1) mmol/L Chloride 110 H (96-108) mmol/L Carbon Dioxide 18 L (22-29) mmol/L Anion Gap 11 L (12-20) BUN 4 L (9-16) mg/dL Creatinine 0.51 (0.5-1.4) mg/dL Estim Creat Clear Calc 207.7 Estimated GFR > 60 Random Glucose 74 (60-115) mg/dL Calcium 8.4 D (8.4-10.2) mg/dL Magnesium 1.8 (1.6-2.6) mg/dL Total Bilirubin 0.4 (0.0-1.0) mg/dL Direct Bilirubin 0.1 (0.0-0.5) mg/dL AST 20 (5-31) U/L ALT < 6 (0-31) U/L Alkaline Phosphatase 93 (39-117) U/L Total Protein 6.7 (6.5-8.0) g/dL Albumin 3.2 L (3.5-5.0) g/dL Beta HCG, Quant 11360 mIU/mL Urine Color Yellow Urine Appearance Cloudy Urine pH 7.5 (5.0-9.0) Ur Specific [place] <= 1.005 (1.005-1.025) Urine Protein Negative (Neg-Trace) mg/dL Urine Glucose (UA) Negative (Negative) mg/dL Urine Ketones Negative (Negative) mg/dL Urine Blood Moderate (2+) H (Negative) Urine Nitrite Negative (Negative) Ur Leukocyte Esterase Small (1+) H (Negative) Urine RBC 6-10 H (0-2) /HPF Urine WBC 0-5 (0-5) /HPF Ur Squamous Epith Cells 11-20 (0-2) /HPF Urine Bacteria Trace (None Seen) Hyaline Casts 0-2 (0-2) /LPF Radiology Impression Discussion of test interpretation with radiology: I have reviewed the radiologist's reading. Radiologist Impression: EXAMINATION: US , LIMITED CLINICAL INFORMATION: Abdominal pain. 32 weeks . Evaluate fetus. COMPARISON: Ultrasound OB 07/31/2024. TECHNIQUE: Transabdominal imaging of pelvis is performed. FINDINGS: There is a single live intrauterine fetus in cephalic position. heart rate is 1 36 bpm. The cervix is closed measuring 4.40 cm. The placenta is posterior. Single femoral length measured is 6.14 cm corresponding to 32 weeks 4 days +/- 3 weeks. Both ovaries are not visualized. No free fluid in the cul-de-sac. IMPRESSION: Single live intrauterine fetus in cephalic position measuring 32 weeks and 5 days.. Electronically signed by: Reuben Parson MD 09/09/2024 12:50 PM Chronic Conditions Patient?s care impacted by: Other (Third trimester ) Discharge Plan Discharge Clinical Impression: Third trimester , Abdominal pain, GERD (gastroesophageal reflux disease) Patient Disposition: [facility] Hospital Transfer Details: [facility] Print Language: Gabonese Creole
--- NOTE | 2024-09-09 11:43 | PC.NURSE ---
completed triage with Chantal Parnell machine carton marker #[id number]
[2024-09-09 11:55] LABS: MANUAL DIFF FLAG NO
[2024-09-09 11:57] LABS: Basophils Percent Auto 0.3 % (0-2); Eosinophils Absolute Auto 0.1 X10*3/uL (0.0-0.4); Eosinophils Percent Auto 1.1 % (0-4); Hematocrit 32.8 % (37.0-47.0); Imm Gran Abs Auto 0.15 X10*3/uL (0.00-0.03); Imm Gran Pct Auto 1.5 % (0.0-0.4); Lymphocytes Absolute Auto 1.9 X10*3/uL (1.2-4.9); Lymphocytes Percent Auto 18.7 % (20-40); Mean Corpuscular HGB Conc 33.5 g/dl (31.0-35.0); Mean Corpuscular Hemoglobin 28.9 pg (27.0-33.0); Mean Corpuscular Volume 86.3 fL (80.0-98.0); Monocytes Absolute Auto 1.1 X10*3/uL (0.1-1.2); Monocytes Percent Auto 10.6 % (2-11); Neutrophils Absolute Auto 6.8 x10*3/uL (2.0-8.3); Neutrophils Percent Auto 67.8 % (45-73); Platelet Count 310 X10*3/uL (160-400); Red Cell Distribution Width 13.1 % (11.0-16.0); White Blood Count 10.1 X10*3/uL (4.8-10.8)
[2024-09-09 11:58] LABS: Appearance Urine Cloudy; Color Urine Yellow; Glucose Urine UA Negative (Negative); Leukocyte Esterase Urine Small (1+) (Negative); Nitrite Urine Negative (Negative); PH 7.5 (5.0-9.0); Specific Gravity - Urine <= 1.005 (1.005-1.025); UMIC TRIGGER UACC YES; Urine Blood Moderate (2+) (Negative); Urine Ketones Negative (Negative); Urine Protein Negative (Neg-Trace)
--- NOTE | 2024-09-09 11:59 | PC.NURSE ---
a&ox4. vss and up to date aside from being slightly tachycardic - pt denies any chest pain/palpitations. [facility] Creole software asset manager services utilized during assessment. pt presents to the ED at 32 weeks c/o lower abd pain when fetus is moving. pt also endorsing associated vaginal itching. otherwise denies any nausea/vomiting/diarrhea/fever/chills/other urinary sx. pt verbalizing that she does not follow up w/ OBGYN/take vitamins. LMP in March. pt denies obstetric care aside from occasional visits at the emergency department. labs/urine obtained/sent to lab. pt currently having ultrasound completed at this time. on RA w/o difficulty - no sob/wob noted. respirations even/unlabored. plan of care ongoing. call ochoa placed within reach.
[2024-09-09 12:10] LABS: Bacteria Urine Trace (None Seen); Hyaline Casts Urine 0-2 /LPF (0-2); UACC Culture Trigger YES; WBC Urine 0-5 /HPF (0-5)
[2024-09-09 12:17] LABS: Alanine Aminotransferase < 6 U/L (0-31); Albumin Level 3.2 g/dL (3.5-5.0); Alkaline Phosphatase 93 U/L (39-117); Anion Gap 11 (12-20); Aspartate Amino Transferase 20 U/L (5-31); Bilirubin Direct 0.1 mg/dL (0.0-0.5); Bilirubin Total 0.4 mg/dL (0.0-1.0); Blood Urea Nitrogen 4 mg/dL (9-16); Calcium 8.4 mg/dL (8.4-10.2); Carbon Dioxide 18 mmol/L (22-29); Chloride 110 mmol/L (96-108); Creatinine Clr Calc Pharmacy 207.7; Estimated Glomerular Filt Rate > 60; Glucose Random 74 mg/dL (60-115); Magnesium 1.8 mg/dL (1.6-2.6); Sodium 135 mmol/L (135-145); Total Protein 6.7 g/dL (6.5-8.0)
[2024-09-09 12:35] LABS: HCG Quantitative 33102 mIU/mL
[2024-09-09 13:42] VITALS: BP 92/53; PULSE 90; RESP 18; TEMP 36.8; O2SAT 100
--- NOTE | 2024-09-09 13:55 | PC.NURSE ---
20gIV placed in the left AC - patent/intact. pt notified/aware that [facility] via BLS at this time. will update pt on ETA when able.
[2024-09-09 15:35] VITALS: BP 126/58; PULSE 97; RESP 18; TEMP 36.9; O2SAT 100
--- NOTE | 2024-09-09 15:42 | PC.NURSE ---
report given to ADONIS Breaux at this time. call back number provided to MICHELLE at [facility] at this time as RN at [facility] was currently unavailable at this time.
--- NOTE | 2024-09-09 15:53 | PC.NURSE ---
report given to EDEN Chaney in [facility] at this time.
[2024-09-09 15:54] VITALS: BP 126/58; PULSE 97; RESP 18; TEMP 36.9; O2SAT 100
== END 2024-09-09 15:54 | disposition short-term general hospital (02) ==
PROVIDERS: Physician Assistant; Emergency Provider Emergency Medicine Emergency Medical Services
DX: O26.893 Other specified pregnancy related conditions, third trimester (principal); K21.9 Gastro-esophageal reflux disease without esophagitis; R10.13 Epigastric pain; R10.32 Left lower quadrant pain; O09.33 Supervision of pregnancy with insufficient antenatal care, third trimester; Z3A.32 32 weeks gestation of pregnancy
CPT/HCPCS: 36415; 76815; 80048; 80076; 81001; 81003; 83735; 84702; 85025; 87086; 99285